=== PATIENT | male | born 2000 | race Caucasian/White ===

== ENCOUNTER 2018-11-03 14:41 | Emergency (ER) | payer MEDICAID ==
[~2018-11-03] VITALS: Ht 172.7 cm; Wt 61.2 kg
[2018-11-03 14:41] VITALS: BP_SYST 135
[2018-11-03] MEDS ORDERED: IBUPROFEN 600 MG TABLET PO ONE (15:15)
[2018-11-03 16:10] VITALS: BP_SYST 135
== END 2018-11-03 16:09 ==
LOC: SED 14:41
DX: M94.1 Relapsing polychondritis (principal); F43.9 Reaction to severe stress, unspecified
CPT/HCPCS: 71045; 99283